=== PATIENT | male | born 1975 | race Two or more races ===

== ENCOUNTER 2020-03-08 16:36 | Emergency (ER) | payer OTHER ==
[~2020-03-08] VITALS: Ht 165.1 cm; Wt 105.0 kg
--- NOTE | 2020-03-08 17:37 | NUR ---
GARMENT SORTER: PT TO ROOM FROM LET[facility] HERRERA
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
[2020-03-08] MEDS ORDERED: KETOROLAC 30 MG/1 ML IM ONE (18:00)
[2020-03-08] MEDS ORDERED: KETOROLAC 30 MG/1 ML ONE (18:08)
--- NOTE | 2020-03-08 18:14 | NUR ---
C-COLLAR APPLIED. PT MEDICATED PER ORDER. AWAITING RADIOLOGY FOR FILMS
[2020-03-08 20:03] VITALS: BP 118/69
== END 2020-03-08 20:07 | disposition home or self-care (01) ==
LOC: ED 19:50
DX: S16.1XXA Strain of muscle, fascia and tendon at neck level, initial encounter (principal); M25.512 Pain in left shoulder; I10 Essential (primary) hypertension; E11.9 Type 2 diabetes mellitus without complications; V49.09XA Driver injured in collision with other motor vehicles in nontraffic accident, initial encounter; Y93.89 Activity, other specified; Y92.410 Unspecified street and highway as the place of occurrence of the external cause; Y99.8 Other external cause status
CPT/HCPCS: 72020; 72050; 73030; 96372; 99284; J1885